=== PATIENT | male | born 1960 | race Two or more races ===

== ENCOUNTER 2024-11-12 08:25 | Day surgery (SDC) | payer MEDICARE, MEDICAID, SELFPAY ==
[2024-11-09 14:53] VITALS: BMI 23.5
[2024-11-12] VITALS (13 sets, daily range): BP systolic 113–188; BP diastolic 72–111; PULSE 87–100; RESP 14–27; TEMP 36.3–37.1; O2SAT 97–100; BMI 21.2
[2024-11-12] MEDS: fentaNYL CIT INJ 50 mCg/ML AMP 2ML (ASD USE ONLY) IVP (10:40)
[2024-11-12] MEDS: MIDAZOLAM INJ 1 MG/ML VIAL 2 ML (ASD USE ONLY) 2 MG IVP (10:40)
[2024-11-12] MEDS: SODIUM CHLORIDE 0.9% 500 ML 500 ML 20 ML IV (10:40)
[2024-11-12] MEDS: hydrALAZINE INJ 20 MG/ML VIAL 10 MG IVP (10:43)
--- NOTE | 2024-11-12 11:13 | SUR.PHASEII ---
1101 patient is sleepy and arousable, breathing unlabored, s/p colonoscopy under IV sedation, report received for Nataliia PETER
--- NOTE | 2024-11-12 11:51 | SUR.PHASEII ---
1145 patient is awake, alert, breathing unlabored, able to tolerated apple juice with no nausea or vomiting, meets discharge criteria, discharge instructions given to patient and spouse bassam, patient discharged home in wheelchair with all belongings.
== END 2024-11-12 11:45 | disposition home or self-care (01) ==
PROVIDERS: PCP Family Medicine; Referring Provider Specialist; Visit Provider Specialist
PROC: 0DBE8ZX Excision of Large Intestine, Via Natural or Artificial Opening Endoscopic, Diagnostic (ICD-10-PCS; CPT 45380; principal; 2024-11-12 09:45)
DX: D12.3 Benign neoplasm of transverse colon (principal); D12.2 Benign neoplasm of ascending colon; K64.1 Second degree hemorrhoids; K57.30 Diverticulosis of large intestine without perforation or abscess without bleeding; R19.5 Other fecal abnormalities; E11.9 Type 2 diabetes mellitus without complications; Z79.899 Other long term (current) drug therapy
CPT/HCPCS: 45385; A4649; J0360; J1200; J2250; J3010; J7999